=== PATIENT | female | born 2000 | race Two or more races ===

== ENCOUNTER 2019-11-26 17:27 | Emergency (ER) | payer MEDICARE, OTHER ==
[2019-11-26 18:03] VITALS: BP 102/54
--- NOTE | 2019-11-26 19:57 | UC ---
Knee Pain HPI - HPI Summary HPI Summary: 19-year-old female presents with complaints of left knee pain. States 2 days ago she was exercising and fell landing directly onto her knee. Complains of pain to the medial joint line with swelling. She has been able to walk and bear weight since the injury. States pain worsens with weightbearing or fully extending the knee. Denies any numbness or tingling. - History of Current Complaint Chief Complaint: UCLowerExtremity Stated Complaint: LEFT KNEE COMPLAINT Time Seen by Provider: 11/26/19 19:18 Hx Obtained From: Patient Hx Last Menstrual Period: 11/10/19 Pain Intensity: 7 - Allergies/Home Medications Allergies/Adverse Reactions: Allergies Allergy/AdvReac Type Severity Reaction Status Date / Time No Known Allergies Allergy Verified 11/26/19 17:59 Home Medications: Home Medications NK [No Home Medications Reported] 11/26/19 [History Confirmed 11/26/19] PMH/Surg Hx/FS Hx/Imm Hx Previously Healthy: Yes - Denies significant PMH - Surgical History Surgical History: None - Family History Family History: Denies significant family medical history - Social History Occupation: Student Lives: Dormitory/Roommates Alcohol Use: Rare Substance Use Type: None Smoking Status (MU): Never Smoked Tobacco Review of Systems All Other Systems Reviewed And Are Negative: Yes Constitutional: Positive: Negative Skin: Negative: Bruising Respiratory: Positive: Negative Cardiovascular: Positive: Negative Gastrointestinal: Positive: Negative Genitourinary: Positive: Negative Motor: Negative: Weakness Neurovascular: Negative: Decreased Sensation Musculoskeletal: Positive: Other: - See HPI Neurological/Mental Status: Positive: Negative Is Patient Immunocompromised?: No Physical Exam - Summary Physical Exam Summary: GENERAL APPEARANCE: Well developed, well nourished, alert and cooperative, and appears to be in no acute distress. CARDIAC: Normal S1 and S2. No S3, S4 or murmurs. Rhythm is regular. There is no peripheral edema, cyanosis or pallor. Extremities are warm and well perfused. Capillary refill is less than 2 seconds. Peripheral pulses intact. LUNGS: Clear to auscultation without rales, rhonchi, wheezing or diminished breath sounds. ABDOMEN: Positive bowel sounds. Soft, nondistended, nontender. No guarding or rebound. No masses or hepatosplenomegally. MUSKULOSKELETAL: Normal muscular development. Limping gait. EXTREMITIES: Tenderness along the medial joint line with mild edema. No gross deformity, ecchymosis, or erythema. Full ROM. Circulation and sensation intact. SKIN: Skin normal color, texture and turgor with no lesions or eruptions. Triage Information Reviewed: Yes Vital Signs: Initial Vital Signs Temp 97.9 F 11/26/19 17:59 Pulse 88 11/26/19 17:59 Resp 16 11/26/19 17:59 BP 102/54 11/26/19 17:59 Pulse Ox 98 11/26/19 17:59 Vital Signs Reviewed: Yes Diagnostics - Radiology No standard instances Radiology Interpretation Completed By: ED Physician - No acute osseous injury Knee Pain Course/Dx - Course Course Of Treatment: 19-year-old female presents with complaints of left knee pain. States 2 days ago she was exercising and fell landing directly onto her knee. Complains of pain to the medial joint line with swelling. She has been able to walk and bear weight since the injury. States pain worsens with weightbearing or fully extending the knee. Denies any numbness or tingling. Afebrile. Vital signs stable. Patient had tenderness along the medial joint line with mild edema. No gross deformity, ecchymosis, or erythema. Full ROM. Circulation and sensation intact. Remainder of exam was unremarkable. Preliminary reading of the x-ray showed no acute osseous injury. Reviewed results with the patient. Recommending conservative treatment for left knee pain including over-the- counter analgesics and RICE. She was placed in an Shaan wrap by the RN. She is to follow-up with orthopedic surgery in 7 days if symptoms are not improving. Anticipatory guidance and warning symptoms were reviewed with the patient. Verbalizes understanding and agrees with plan of care. - Differential Dx/Diagnosis Differential Diagnosis/HQI/PQRI: Contusion, Dislocation, Fracture (Closed), Internal Derangement Of Knee, Sprain Provider Diagnosis: Left knee pain Discharge ED - Sign-Out/Discharge Documenting (check all that apply): Patient Departure All imaging exams completed and their final reports reviewed: No - Discharge Plan Condition: Stable Disposition: HOME Patient Education Materials: Knee Pain (ED) Referrals: No Primary Care Phys,NOPCP [Primary Care Provider] - Juancarlos Phelan MD [Medical Doctor] - 7 Days (If no improvement in symptoms.) Additional Instructions: The x-ray performed in the clinic today showed no evidence of a fracture. Rest the Knee as much as possible. You may continue to walk and bear weight as tolerated. You should avoid any strenuous activity such as running and jumping until you are pain free. Apply ice to the affected area for 15-20 minutes at least 4 times a day to help with the pain and swelling. Elevate the leg to help reduce swelling. Use an Shaan wrap for compression sleeve to help manage any swelling. Take acetaminophen (Tylenol) or ibuprofen (Advil, Motrin) according to directions as needed for pain. Follow up with orthopedic surgery in 7 days if symptoms do not improve. Seek immediate medical attention if you have severe pain not managed with pain medication, you are unable to walk or bear any weight, develop numbness or tingling in the leg, foot, or toes, or have any worsening of symptoms. - Billing Disposition and Condition Condition: STABLE Disposition: Home - Attestation Statements Provider Attestation: This patient was not seen by me. I was available for consult. Chart reviewed. DANIEL
--- NOTE | 2019-11-27 12:09 | UC ---
- Progress Note Progress Note: Reviewed Dr. Myles's report: negative exam. No change from wet read. Course/Dx - Diagnoses Provider Diagnoses: Left knee pain Discharge ED - Sign-Out/Discharge Documenting (check all that apply): Post-Discharge Follow Up All imaging exams completed and their final reports reviewed: Yes - Discharge Plan Condition: Stable Disposition: HOME Patient Education Materials: Knee Pain (ED) Referrals: Juancarlos Phelan MD [Medical Doctor] - 7 Days (If no improvement in symptoms.) No Primary Care Phys,NOPCP [Primary Care Provider] - Additional Instructions: The x-ray performed in the clinic today showed no evidence of a fracture. Rest the Knee as much as possible. You may continue to walk and bear weight as tolerated. You should avoid any strenuous activity such as running and jumping until you are pain free. Apply ice to the affected area for 15-20 minutes at least 4 times a day to help with the pain and swelling. Elevate the leg to help reduce swelling. Use an Shaan wrap for compression sleeve to help manage any swelling. Take acetaminophen (Tylenol) or ibuprofen (Advil, Motrin) according to directions as needed for pain. Follow up with orthopedic surgery in 7 days if symptoms do not improve. Seek immediate medical attention if you have severe pain not managed with pain medication, you are unable to walk or bear any weight, develop numbness or tingling in the leg, foot, or toes, or have any worsening of symptoms. - Billing Disposition and Condition Condition: STABLE Disposition: Home
== END 2019-11-26 20:11 | disposition home or self-care (01) ==
LOC: UCCORT 17:27
DX: M25.562 Pain in left knee (principal); W18.30XA Fall on same level, unspecified, initial encounter; Y92.9 Unspecified place or not applicable
CPT/HCPCS: 99202; G0463